=== PATIENT | male | born 1990 | race African-American/Black ===

== ENCOUNTER → 2016-11-13 22:55 | Emergency (ER) | payer OTHER ==
[2016-11-13 22:41] LABS: BASOPHIL# 0.1 X10e3 (0-0.3); BASOPHIL% 0.4 % (0-2.5); EOSINOPHIL% 0.1 % (0.0-7.0); HEMATOCRIT 50.8 % (38.0-50.0); LYMPHOCYTE# 1.2 X10e3 (1.0-3.5); LYMPHOCYTE% 9.2 % (17.0-45.0); MEAN CELL VOLUME 98.2 FL (83-96); MEAN CORPUSCULAR HEMOGLOBIN 32.9 PG (28-34); MEAN CORPUSCULAR HGB CONC 33.5 g/dL (30-36); MEAN PLATELET VOLUME 10.9 FL (6.5-11.5); MONOCYTE# 0.7 X10e3 (0-1.0); MONOCYTE% 5.5 % (3.0-12.0); NEUTROPHIL# 11.2 X10e3 (1.5-7.1); NEUTROPHIL% 84.8 % (40-75); RED BLOOD COUNT 5.17 X10e (3.90-5.60); RED CELL DISTRIBUTION WIDTH 12.7 % (11.0-15.5); WHITE BLOOD COUNT 13.2 X10e3 (4.0-10.5)
[2016-11-13 22:57] LABS: ALBUMIN SERUM 5.2 g/dL (3.5-5.0); BILIRUBIN, DIRECT 0.1 mg/dL (0.0-0.2); BILIRUBIN,TOTAL 1.1 mg/dL (0.2-2.0); BUN/CREATININE RATIO 12.5; CALCIUM SERUM 10.2 mg/dL (8.4-10.2); CREATININE SERUM 0.8 mg/dL (0.6-1.4); POTASSIUM 3.9 mmol/L (3.5-5.1); PROTEIN TOTAL SERUM 8.6 g/dL (6.0-8.3)
[2016-11-13 22:58] LABS: DIFF IND NO; PLATELET COUNT 147 X10e3 (140-420)
== END | disposition left against medical advice (07) ==
LOC: CED 22:55
PROVIDERS: Emergency Medicine
DX: Z53.21 Procedure and treatment not carried out due to patient leaving prior to being seen by health care provider (principal)
CPT/HCPCS: 80048; 80076; 82150; 83690; 85025

== ENCOUNTER 2016-11-15 14:22 | Emergency (ER) | payer OTHER ==
--- NOTE | ~2016-11-15 | CR2 ---
[facility] A Service of [facility] & [facility] RADIOLOGY TEXT RESULTS PATIENT: LEILA GARCÍA LOCATION: [facility] : [birth year] UNIT #: [id number] AGE: [address]: Humza Chan MD SEX: M ORDER DR: [id number] [facility] [address] [place], [place] [address] [id number] MR#: [id number] Acc #: [id number] NAME: LEILA GARCÍA : 1990 SEX: M STUDY DATE/TIME: 11/15/2016 14:16 UNIT: [facility] ROOM: STUDY DESCRIPTION: CR Abdomen Acute Series Attending Physician: Humza Chan M.D. Ordering Physician: Humza Chan M.D. MEDICAL IMAGING REPORT This report is preliminary unless electronic signature is present EXAM Abdominal series INDICATIONS Vomiting and chest pain and epigastric region pain for the past few days. TECHNIQUE Frontal view chest. Supine and upright views of the abdomen. FINDINGS Lungs are clear. No free air. Non-obstructed bowel gas pattern. IMPRESSION No acute findings. Dictated by... Caesar Ascencio M.D. THIS IS AN ELECTRONICALLY VERIFIED REPORT Caesar Ascencio M.D. at 11/16/2016 9:43 AM EED/miladys TD: 11/15/2016 16:29 JOB #: [id number] MEDICAL IMAGING REPORT Page 1 of 1 COPY
--- NOTE | ~2016-11-15 | EKG ---
PATIENT: LEILA GARCÍA UNIT #: [id number] Ventricular Rate: 59 BPM Atrial Rate: 59 BPM P-R Interval: 158 ms QRS Duration: 114 ms Q-T Interval: 408 ms QTC Calculation(Bezet): 403 ms P [place]: 56 degrees Calculated R [place]: 89 degrees Calculated T [place]: 62 degrees Diagnosis Line: Sinus bradycardia Diagnosis Line: Otherwise normal ECG Diagnosis Line: No previous ECGs available Diagnosis Line: Confirmed by JEFFERSON CURRY MD ([id number]) on Diagnosis Line: 11/16/2016 7:15:24 AM INTERPRETING MD: SASCHA
[2016-11-15 14:41] LABS: POC - CKMB <1.0 ng/mL (0.0-7.9); POC - TROPONIN <0.05 ng/mL (<=0.05)
[2016-11-15 14:46] LABS: INFLUENZA A NEG (NEG); INFLUENZA B NEG (NEG)
[2016-11-15 14:48] LABS: BASOPHIL% 0.3 % (0-2.5); EOSINOPHIL% 0.3 % (0.0-7.0); HEMATOCRIT 53.7 % (38.0-50.0); HEMOGLOBIN 18.1 gm/dL (13.0-16.0); LYMPHOCYTE# 1.9 X10e3 (1.0-3.5); LYMPHOCYTE% 15.6 % (17.0-45.0); MEAN CELL VOLUME 98.4 FL (83-96); MEAN CORPUSCULAR HEMOGLOBIN 33.1 PG (28-34); MEAN CORPUSCULAR HGB CONC 33.7 g/dL (30-36); MEAN PLATELET VOLUME 10.6 FL (6.5-11.5); MONOCYTE# 1.2 X10e3 (0-1.0); MONOCYTE% 10.3 % (3.0-12.0); NEUTROPHIL# 8.8 X10e3 (1.5-7.1); NEUTROPHIL% 73.5 % (40-75); PLATELET COUNT 145 X10e3 (140-420); RED BLOOD COUNT 5.46 X10e (3.90-5.60); RED CELL DISTRIBUTION WIDTH 12.8 % (11.0-15.5)
[2016-11-15 14:50] LABS: PARTIAL THROMBOPLASTIN TIME 28.5 SECONDS (23.5-31.3); PROTHROMBIN TIME (PATIENT) 10.8 SECONDS (9.6-11.5)
[2016-11-15 15:09] LABS: ALBUMIN SERUM 5.2 g/dL (3.5-5.0); BILIRUBIN, DIRECT 0.1 mg/dL (0.0-0.2); BILIRUBIN,INDIRECT 0.9 mg/dL (0.0-0.9); BUN/CREATININE RATIO 14.44; CALCIUM SERUM 9.8 mg/dL (8.4-10.2); CREATININE SERUM 0.9 mg/dL (0.6-1.4); GLOM FILT RATE Estimated 137.1 mL/min (>60); POTASSIUM 3.2 mmol/L (3.5-5.1); PROTEIN TOTAL SERUM 8.5 g/dL (6.0-8.3)
[2016-11-15 15:17] LABS: DIFF IND NO
[2016-11-15 15:42] LABS: URINE SOURCE CLEAN CATCH
[2016-11-15 16:00] LABS: URINE APPEARANCE CLEAR; URINE BLOOD NEG (NEG); URINE COLOR DK YELLOW; URINE GLUCOSE NEG (NEG); URINE KETONE 2+ (NEG); URINE LEUKOCYTE ESTERASE 1+ (NEG); URINE NITRATE NEG (NEG); URINE PROTEIN 1+ (NEG); URINE SPECIFIC GRAVITY 1.042 (1.003-1.035)
[2016-11-15 16:03] LABS: CULTURE INDICATED? YES; URINE BACTERIA AUWI NEG (NEGATIVE); URINE SQUAMOUS EPITHELIAL CELL OCC /[HPF]; UWBCS1 AUWI 25-50 (0-5)
[2016-11-15 16:13] LABS: URINE BILIRUBIN NEG (NEG)
[2016-11-15 16:19] LABS: URINE MUCUS PRESENT; URINE TRICHOMONAS PRESENT
[2016-11-15 16:30] LABS: POC - CKMB <1.0 ng/mL (0.0-7.9); POC - TROPONIN <0.05 ng/mL (<=0.05)
[2016-11-17 16:46] LABS: CHLAMYDIA TRACH Not Detected (Not Detected); N GONOR Not Detected (Not Detected)
== END 2016-11-15 16:50 | disposition home or self-care (01) ==
LOC: CED 14:22
PROVIDERS: Emergency Medicine
DX: R09.1 Pleurisy (principal); A59.00 Urogenital trichomoniasis, unspecified
CPT/HCPCS: 36415; 74022; 80048; 80076; 81003; 82553; 83690; 84484; 85025; 85379; 85610; 85730; 87086; 87491; 87591; 87804; 93005; 96361; 96374; 99284; J2405

== ENCOUNTER 2017-01-18 13:47 | Inpatient (IN) | payer OTHER ==
--- NOTE | ~2017-01-18 | US6 ---
[facility] A Service of [facility] & [facility] RADIOLOGY TEXT RESULTS PATIENT: LEILA GARCÍA LOCATION: A 340-01 : [birth year] UNIT #: [id number] AGE: [address]: Kori Gore MD SEX: M ORDER DR: [id number] [facility] [address] [place], [place] [address] [id number] I MR#: [id number] Acc #: [id number] NAME: LEILA GARCÍA : 1990 SEX: M STUDY DATE/TIME: 01/19/2017 7:27 UNIT: C3A PCU ROOM: [facility] STUDY DESCRIPTION: US Abdominal Limited Attending Physician: Kori Gore M.D. Ordering Physician: Ayah Hargrove M.D. Primary Care Physician: No Primary Care Physician MEDICAL IMAGING REPORT This report is preliminary unless electronic signature is present EXAM Right upper quadrant ultrasound 01/19/2017. HISTORY Epigastric abdominal pain, right upper quadrant pain with nausea and vomiting for 2 days, pancreatitis, elevated lipase levels today. FINDINGS The liver is homogeneous in echotexture and demonstrates no cystic or solid mass lesions. The intra and extrahepatic bile ducts are not dilated. The gallbladder is normal with no evidence of cholelithiasis, wall thickening or pericholecystic fluid. The common duct measures 3 mm. The pancreas is somewhat enlarged. The pancreatic tail is obscured by bowel gas. No peripancreatic fluid collections are identified by ultrasound. There is increased right renal cortical echogenicity characteristic of medical renal disease. IMPRESSION 1. Normal gallbladder. 2. The pancreatic tail is obscured by bowel gas. The visualized portions of the pancreas appears somewhat diffusely enlarged. No peripancreatic fluid collections are identified. 3. Increased right renal cortical echogenicity characteristic of medical renal disease. No evidence of hydronephrosis. Dictated by... Darren Hall M.D. THIS IS AN ELECTRONICALLY VERIFIED REPORT Darren Hall M.D. at 01/20/2017 8:19 AM KRT/bd TD: 01/19/2017 13:33 [facility] A Service of [facility] & [facility] RADIOLOGY TEXT RESULTS PATIENT: LEILA GARCÍA LOCATION: [facility] 340-01 : [birth year] UNIT #: [id number] AGE: [address]: Kori Gore MD SEX: M ORDER DR: JOB #: [id number] MEDICAL IMAGING REPORT Page 1 of 1 COPY
--- NOTE | ~2017-01-18 | HP ---
Unit #: [id number] #: [id number] Patient: LEILA GARCÍA [id number] [address] [address] [id number] I MR#: [id number] NAME: LEILA GARCÍA ROOM: 13912 Age: 26 Sex: M Admission Date: 01/18/2017 : 1990 Attending Physician: Ayah Hargrove M.D. Primary Care Physician: No Primary Care Physician HISTORY AND PHYSICAL CHIEF COMPLAINT Vomiting, abdominal pain. HISTORY OF PRESENT ILLNESS The patient is a 26-year-old male with no significant past medical history, who presented to the emergency department for evaluation of the above. The patient states that he was in his usual state of health until the morning of admission when he developed abdominal pain. He states that the pain is in his mid and upper abdomen. He describes it as "achy." There are no exacerbating or alleviating factors. He denies any similar pain. He has had six bouts of nonbloody emesis within the past 24 hours. He also reports three bouts of nonbloody diarrhea. He denies any urinary symptoms. No fever. No cough or cold symptoms. In the emergency department a CT of the abdomen and pelvis was done and showed findings concerning for moderate to severe pancreatitis. White blood cell count is 14.7. He was given morphine and Zofran in the emergency department as well as 1 L of normal saline. Of note, the patient drinks most days. He states that his last drink was on the day prior to admission and consisted of a pint that he split with a friend. PAST MEDICAL HISTORY The patient denies hospitalizations. PAST SURGICAL HISTORY None. SOCIAL HISTORY The patient lives with his girlfriend. He smokes a pack of cigarettes daily. He drinks most days. He stated initially occasionally then he said every other day. His last drink was yesterday. He split a pint with a friend. He denies illicit drug use. He is currently unemployed. FAMILY HISTORY Family history is notable for his parents being healthy. ALLERGIES No known allergies. HOME MEDICATIONS None. Unit #: [id number] #: [id number] Patient: LEILA GARCÍA REVIEW OF SYSTEMS A complete review of systems is negative except as indicated in the HPI. The patient denies ever having endoscopy. DIAGNOSTIC STUDIES IMAGING: CT of the abdomen and pelvis shows moderate to severe pancreatitis with peripancreatic inflammatory change. There is no drainable fluid collection. There is also stranding of the ascending colon concerning for possible mild colitis. Gallbladder sludge is also noted. LABORATORY: Urinalysis notable for trace protein. Complete blood count notable for white blood cell count of 14.7, hemoglobin and hematocrit 16.8 and 51.1 respectively. Comprehensive metabolic panel notable for glucose of 143, lipase is 282. PHYSICAL EXAMINATION VITAL SIGNS: Temperature is 98. Pulse 52. Respirations 16. Blood pressure 157/88. Oxygen saturation is 100% on room air. GENERAL: The patient is an -[place] male who is awake and alert, in no acute distress. HEENT: The head is atraumatic. Mucous membranes are dry. NECK: Neck is supple. Trachea is midline. CARDIOVASCULAR: Regular rate and rhythm. LUNGS: Lungs are clear to auscultation bilaterally with no increased work of breathing. ABDOMEN: Abdomen is soft. He is tender to palpation in the epigastric area. His bowel sounds are present in all four quadrants but somewhat decreased. EXTREMITIES: Nontender with no pedal edema. NEUROLOGIC: The patient is awake and alert. He follows commands. PSYCHIATRIC: Mood and affect are normal. The patient is cooperative. SKIN: Skin of examined areas is warm and dry. ASSESSMENT The patient is a 26-year-old male with: 1. Acute pancreatitis, likely secondary to alcohol abuse with last drink being yesterday. 2. Possible acute colitis versus inflammatory change related to pancreatitis. 3. Leukocytosis with a white blood cell count of 14.7. 4. Alcohol abuse with last drink being yesterday. 5. Tobacco abuse. PLAN 1. Admit to intermediate level. 2. N.p.o. 3. P.r.n. morphine. 4. P.r.n. Zofran. 5. Alcohol withdrawal protocol with IV fluids to start now. 6. Right upper quadrant ultrasound for further evaluation of pancreatitis and gallbladder sludge noted on CT. 7. Blood cultures x2. 8. Stool for ova and parasites, C. diff, culture and sensitivity. 9. Zosyn IV pending further workup. 10. Check blood alcohol level. 11. Urine tox screen. Unit #: [id number] #: [id number] Patient: LEILA GARCÍA 12. site project manager/social work consult regarding alcohol abuse. 13. SCDs for DVT prophylaxis. 14. Repeat labs in the morning including amylase and lipase. 15. Additional workup and consultants based on above. Dictated by Rosa Holder/anna TD: 01/18/2017 19:24 JOB #: [id number] HISTORY AND PHYSICAL Page 1 of 1 X Ayah Hargrove MD X HISTORY AND PHYSICAL
--- NOTE | ~2017-01-18 | CT2 ---
[facility] A Service of [facility] & [facility] RADIOLOGY TEXT RESULTS PATIENT: LEILA GARCÍA LOCATION: C3A 340-01 : [birth year] UNIT #: [id number] AGE: [address]: Kori oGre MD SEX: M ORDER DR: [id number] [facility] [address] [place], [place] [address] [id number] I MR#: [id number] Acc #: [id number] NAME: LEILA GARCÍA : 1990 SEX: M STUDY DATE/TIME: 01/18/2017 16:15 UNIT: C3A PCU ROOM: 340 STUDY DESCRIPTION: CT Abd and Pelv W Cont Attending Physician: Kori Gore M.D. Ordering Physician: Er Physicians Primary Care Physician: Primary Care Physician No MEDICAL IMAGING REPORT This report is preliminary unless electronic signature is present EXAM CT abdomen and pelvis 01/18/2017 HISTORY Vomiting, abdomen pain since this a.m. Middle abdomen pain. The CT exam was performed with one or more of the following radiation dose reduction techniques: automatic exposure control, adjustment of mA and/or kV according to patient size, and iterative reconstruction. FINDINGS CT abdomen performed with intravenous administration 100 mL Isovue-370. No comparisons. Lung bases clear. Inferior heart and pericardium unremarkable. Liver shows no focal abnormality. The liver is enlarged measuring 21 cm in craniocaudal extent. Trace fluid adjacent to the right hepatic lobe. Not drainable fluid collection. Gallbladder is normal in volume. There is a subtle increased density in the dependent portion of the gallbladder. I favor this is gallbladder sludge. No discrete calculi are seen. There is no wall thickening or localized pericholecystic fluid and there is no biliary ductal dilatation. The spleen is unremarkable. Pancreas is abnormal. The pancreas shows subtle heterogeneity of enhancement. There is extensive peripancreatic inflammatory change. There is fluid along the anterior posterior and inferior aspects of the pancreatic tail and along the inferior aspect of the pancreatic head and uncinate process tracking along the anterior to pararenal fascia bilaterally into the bilateral pericolic gutters. There is no pancreatic ductal dilatation. No intrapancreatic fluid collection. Some fluid tracks superiorly toward the splenic hilum. At this time I do not believe there is a drainable fluid collection. There is no indication of organized fluid collection. There is a small amount of free fluid in the pelvis also not a drainable fluid collection. Findings most consistent with moderate to severe acute pancreatitis. Cause unknown. The adrenal glands are unremarkable. Although this is a contrast-enhanced [facility] A Service of [facility] RADIOLOGY TEXT RESULTS PATIENT: LEILA GARCÍA LOCATION: C3A 340-01 : [birth year] UNIT #: [id number] AGE: [address]: Kori Gore MD SEX: M ORDER DR: examination, there do appear to be bilateral nonobstructing renal calculi largest on the right measuring about 2 mm in diameter in the upper pole and largest on the left also in the upper pole measuring about 3-4 mm. No acute renal abnormality. No hydronephrosis or hydroureter. CT Pelvis: No inguinal adenopathy. Urinary bladder unremarkable. No pelvic or retroperitoneal adenopathy. Distal esophagus and stomach unremarkable. Small bowel is unremarkable to the level of the terminal ileum. There is fatty infiltration in the wall of the terminal ileum. Normal caliber terminal ileum. Appendix questionably visualized anterior to the external iliac vessels. No abnormal appendix is suggested. Fatty infiltration in the wall of the colon diffusely. No colonic dilatation. No focal mass lesion. There is ascending colon diverticulosis without inflamed diverticulum seen. There is haziness in the fat adjacent to the ascending colon. To what extent this may be related to the pancreatitis and extension of fluid into the right pericolic gutter is unclear. The possibility of a mild ascending colitis is not entirely excluded though no focal area of colonic wall thickening is seen. The above described fatty infiltration in the colonic wall is relatively uniform throughout the colon. There is mild generalized prominence of mesenteric vasculature. This is nonspecific. The fatty infiltration of the wall of the ileum and colon could be a reflection of prior episodes of colonic and ileal inflammation. Given the patient's young age, correlate with any known history of inflammatory bowel disease such as Crohn disease. The mild vascular prominence of the mesentery could be related to chronic inflammatory bowel disease. Alternatively it may simply be a reflection of the acute pancreatitis. Vascular structures appear normal in caliber. No acute-appearing bony abnormality. IMPRESSION 1. Abnormal examination. Predominant acute abnormality appears to be moderate to severe pancreatitis. Peripancreatic inflammatory change. Fluid adjacent to the pancreatic tail extending toward the splenic hilum, greater curvature of stomach, along the bilateral anterior pararenal fascia into the bilateral pericolic gutters. No organized appearing fluid collection and no drainable fluid collection suggested at this time. There is no pancreatic ductal dilatation and no intrapancreatic fluid collection. The pancreas is slightly heterogeneous in appearance but does show parenchymal enhancement. There is no evidence of pancreatic hemorrhage or necrosis. Cause for pancreatitis unclear. 2. Small amount of fluid adjacent to the liver and in the deep pelvis. These are not drainable fluid collections. 3. Fatty infiltration in wall of terminal ileum and diffusely throughout the wall of the entire colon. This is a nonspecific finding. It may be a reflection of prior episodes of ileal and colonic inflammation. In a patient of this young age, correlate with any clinical concern for inflammatory bowel disease such as Crohn disease. [facility] A Service of [facility] RADIOLOGY TEXT RESULTS PATIENT: LEILA GARCÍA LOCATION: C3A 340-01 : [birth year] UNIT #: [id number] AGE: [address]: Kori Gore MD SEX: M ORDER DR: 4. There are ascending colon diverticula without localized inflamed diverticulum seen. 5. There is some haziness and stranding in the fat adjacent to the ascending colon. To what extent this reflects inflammatory change extending from pancreatitis and fluid extending into the pericolic gutter or reflects a mild ascending colitis is unclear. Again no localized area of colonic mural thickening is clearly identified. Please correlate clinically. Weight should be given the clinical assessment. 6. Mild prominence of the vascular arcade within the mesentery could be related to inflammatory change in the abdomen due to the pancreatitis or could in part be chronic in nature if the patient does indeed have a history of inflammatory bowel disease. 7. Nonobstructing bilateral renal calculi. No acute renal findings. 8. There is some subtle layering higher density material within the gallbladder favored to be sludge. Gallbladder otherwise unremarkable. No discrete calculi are seen. No biliary ductal dilatation. 9. Please see remainder findings above. Dictated by... Reuben Quezada M.D. THIS IS AN ELECTRONICALLY VERIFIED REPORT Reuben Quezada M.D. at 01/19/2017 5:40 PM MADALYN/naveen TD: 01/19/2017 08:08 JOB #: [id number] MEDICAL IMAGING REPORT Page 1 of 1 COPY
--- NOTE | ~2017-01-18 | DS ---
Unit #: [id number] #: [id number] Patient: LEILA GARCÍA [id number] [address] [address] [id number] I MR#: [id number] NAME: LEILA GARCÍA ROOM: 215 Age: 26 Sex: M Admission Date: 01/18/2017 : 1990 Discharge Date: 01/21/2017 Attending Physician: Kori Gore M.D. Primary Care Physician: No Primary Care Physician DISCHARGE SUMMARY PRIMARY CARE PHYSICIAN None. PRINCIPAL DIAGNOSES 1. Acute alcohol-induced pancreatitis. 2. Systemic inflammatory response syndrome. 3. Alcohol misuse without evidence of withdrawal or dependence. 4. Hypertension. 5. Thrombocytopenia, secondary to alcohol. 6. Hypomagnesemia. 7. Marijuana abuse. 8. Tobaccoism. 9. Hypokalemia. 10. Hypophosphatemia. 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 PROCEDURES 1. CT scan of abdomen and pelvis with contrast on January 18, 2017, with [id number] pancreatitis with peripancreatic inflammatory change noted. This was adjacent to pancreatic testing toward the splenic hilum, greater curvature of the stomach, and along the bilateral anterior perirenal fascia into the bilateral pericolic gutters. No evidence of hemorrhage or necrosis. Fatty infiltration involving the terminal ileum and diffusely throughout the entire colon is nonspecific. 2. Right upper quadrant ultrasound on January 19, 2017 which was normal. Increased right renal cortical echogenicity is noted. CLINICAL HISTORY AND HOSPITAL COURSE Mr. García is a 26-year-old -[place] male, who presents to the emergency department with complaints of chest pain and vomiting. In the emergency department, the patient was found to have a leukocytosis with white blood cell count of 14,000. CT scan revealed pancreatitis and questionable colitis. Patient was subsequently admitted. Patient was placed on IV fluids, antiemetics, and pain medication. Lipase the day following admission actually increased from 282 to 566 and patient remained NPO; however, the following day lipase is now down to 350 and he was started on clears. On day of discharge, lipase is down even more, down to 160 and patient has been able to tolerate the clear liquid diet. He denies having any further abdominal pain; however, his white blood cell count was remains elevated. On day of admission, it was 14.7. On day of Unit #: [id number] #: [id number] Patient: LEILA GARCÍA discharge, it is remaining stable to approximately 20,000. Patient has remained afebrile throughout hospitalization. I did discuss with patient that his persistent leukocytosis is somewhat concerning for me, that perhaps his pancreatitis has not completely resolved. Given his pancreatitis was itbrlknk-ym-nzzjab, I suggested another day of hospitalization. I think he would also benefit from rescanning of the abdomen just to ensure pancreatitis is resolving; however, today patient states he is ready to go home and he is willing to sign out against medical advice. However, I will treat as outlined below. Patient's only other significant abnormal finding was some hypertension. I am going to continue Norvasc upon discharge and he can be followed up in the transition clinic. DISCHARGE CONDITION Stable, still ill but improving. DISCHARGE STATUS Discharge to home against medical advice. DISCHARGE MEDICATIONS 1. Oxycodone 5 mg one tablet every four to six hours p.r.n. for pain #10 given. 2. Flagyl 500 mg p.o. t.i.d. for five days. 3. Norvasc 10 mg daily with one refill. DISCHARGE INSTRUCTIONS The patient was instructed to follow a low-fat diet for the next three days, then gradually increase as tolerated. He is to refrain from any further alcohol use. FOLLOWUP Patient will follow up in transition clinic in two weeks. I have instructed him if he develops worsening of abdominal pain, any diarrhea, nausea, vomiting, fever to return emergently to the ER. Dictated by... Kori Gore M.D. TATIANA/smith TD: 01/22/2017 10:37 JOB #: [id number] DISCHARGE SUMMARY Page 1 of 1 X Kori Gore MD DISCHARGE SUMMARY
[2017-01-18 15:07] LABS: BASOPHIL# 0.1 X10e3 (0-0.3); BASOPHIL% 0.6 % (0-2.5); EOSINOPHIL# 0.1 X10e3 (0-0.7); EOSINOPHIL% 0.4 % (0.0-7.0); HEMATOCRIT 51.1 % (38.0-50.0); HEMOGLOBIN 16.8 gm/dL (13.0-16.0); LYMPHOCYTE# 1.8 X10e3 (1.0-3.5); LYMPHOCYTE% 12.2 % (17.0-45.0); MEAN CELL VOLUME 99.2 FL (83-96); MEAN CORPUSCULAR HEMOGLOBIN 32.5 PG (28-34); MEAN CORPUSCULAR HGB CONC 32.8 g/dL (30-36); MEAN PLATELET VOLUME 10.3 FL (6.5-11.5); MONOCYTE# 1.3 X10e3 (0-1.0); MONOCYTE% 8.7 % (3.0-12.0); NEUTROPHIL# 11.5 X10e3 (1.5-7.1); NEUTROPHIL% 78.1 % (40-75); PLATELET COUNT 154 X10e3 (140-420); RED BLOOD COUNT 5.15 X10e (3.90-5.60); WHITE BLOOD COUNT 14.7 X10e3 (4.0-10.5)
[2017-01-18 15:21] LABS: ALBUMIN SERUM 4.8 g/dL (3.5-5.0); BILIRUBIN, DIRECT 0.1 mg/dL (0.0-0.2); BILIRUBIN,INDIRECT 0.4 mg/dL (0.0-0.9); BILIRUBIN,TOTAL 0.5 mg/dL (0.2-2.0); BUN/CREATININE RATIO 11.42; CALCIUM SERUM 9.5 mg/dL (8.4-10.2); CREATININE SERUM 0.7 mg/dL (0.6-1.4); GLOM FILT RATE Estimated 152.1 mL/min (>60); POTASSIUM 3.7 mmol/L (3.5-5.1); PROTEIN TOTAL SERUM 7.7 g/dL (6.0-8.3)
[2017-01-18 15:31] LABS: DIFF IND NO
[2017-01-18 17:20] LABS: URINE SOURCE CLEAN CATCH
[2017-01-18 17:24] LABS: URINE APPEARANCE CLEAR; URINE BILIRUBIN NEG (NEG); URINE BLOOD NEG (NEG); URINE COLOR YELLOW; URINE GLUCOSE NEG (NEG); URINE KETONE NEG (NEG); URINE LEUKOCYTE ESTERASE NEG (NEG); URINE NITRATE NEG (NEG); URINE PH 6.5 (5-8); URINE PROTEIN TRACE (NEG); URINE SPECIFIC GRAVITY 1.064 (1.003-1.035)
[2017-01-18 17:31] LABS: CULTURE INDICATED? NO
[2017-01-18 19:38] LABS: MAGNESIUM 1.8 mg/dL (1.6-3.0)
[2017-01-18 19:39] LABS: ALCOHOL BLOOD <5 mg/dL (0)
[2017-01-18 20:19] LABS: AMPHETAMINE NEG (NEG); BARBITURATES NEG (NEG); BENZODIAZEPINES NEG (NEG); COCAINE NEG (NEG); MARIJUANA POS (NEG); OPIATES POS (NEG); TRICYCLIC ANTIDEPRESSANTS POS (NEG); U METHADONE NEG (NEG)
[2017-01-19 07:52] LABS: HEMATOCRIT 47.9 % (38.0-50.0); HEMOGLOBIN 15.8 gm/dL (13.0-16.0); MEAN CELL VOLUME 98.8 FL (83-96); MEAN CORPUSCULAR HEMOGLOBIN 32.6 PG (28-34); MEAN PLATELET VOLUME 11.2 FL (6.5-11.5); RED BLOOD COUNT 4.85 X10e (3.90-5.60); RED CELL DISTRIBUTION WIDTH 14.1 % (11.0-15.5)
[2017-01-19 08:31] LABS: WHITE BLOOD COUNT 22.1 X10e3 (4.0-10.5)
[2017-01-19 08:55] LABS: ALBUMIN SERUM 3.9 g/dL (3.5-5.0); BILIRUBIN,TOTAL 0.7 mg/dL (0.2-2.0); BUN/CREATININE RATIO 11.42; CALCIUM SERUM 9.1 mg/dL (8.4-10.2); CREATININE SERUM 0.7 mg/dL (0.6-1.4); GLOM FILT RATE Estimated 152.1 mL/min (>60); POTASSIUM 3.6 mmol/L (3.5-5.1); PROTEIN TOTAL SERUM 6.7 g/dL (6.0-8.3)
[2017-01-20 06:48] LABS: HEMATOCRIT 45.7 % (38.0-50.0); HEMOGLOBIN 15.1 gm/dL (13.0-16.0); MEAN CELL VOLUME 98.6 FL (83-96); MEAN CORPUSCULAR HEMOGLOBIN 32.6 PG (28-34); MEAN CORPUSCULAR HGB CONC 33.1 g/dL (30-36); MEAN PLATELET VOLUME 10.8 FL (6.5-11.5); RED BLOOD COUNT 4.63 X10e (3.90-5.60); RED CELL DISTRIBUTION WIDTH 13.7 % (11.0-15.5); WHITE BLOOD COUNT 20.4 X10e3 (4.0-10.5)
[2017-01-20 06:54] LABS: ALBUMIN SERUM 3.5 g/dL (3.5-5.0); BILIRUBIN,TOTAL 0.5 mg/dL (0.2-2.0); BUN/CREATININE RATIO 8.33; CALCIUM SERUM 8.8 mg/dL (8.4-10.2); CREATININE SERUM 0.6 mg/dL (0.6-1.4); MAGNESIUM 1.5 mg/dL (1.6-3.0); PHOSPHOROUS 2.1 mg/dL (2.5-4.6); POTASSIUM 3.5 mmol/L (3.5-5.1); PROTEIN TOTAL SERUM 6.6 g/dL (6.0-8.3)
[2017-01-21 05:28] LABS: HEMATOCRIT 44.7 % (38.0-50.0); MEAN CELL VOLUME 98.2 FL (83-96); MEAN CORPUSCULAR HEMOGLOBIN 32.9 PG (28-34); MEAN CORPUSCULAR HGB CONC 33.5 g/dL (30-36); MEAN PLATELET VOLUME 10.4 FL (6.5-11.5); RED BLOOD COUNT 4.55 X10e (3.90-5.60); WHITE BLOOD COUNT 20.1 X10e3 (4.0-10.5)
[2017-01-21 06:24] LABS: CALCIUM SERUM 8.6 mg/dL (8.4-10.2); CARBON DIOXIDE 25 mmol/L (22-31); CHLORIDE 98 mmol/L (100-111); CREATININE SERUM 0.6 mg/dL (0.6-1.4); GLUCOSE FASTING 99 mg/dL (70-110); LIPASE 160 U/L (22-51); MAGNESIUM 1.9 mg/dL (1.6-3.0); POTASSIUM 3.4 mmol/L (3.5-5.1); SODIUM 131 mmol/L (135-145)
[2017-01-21 06:26] LABS: BLOOD UREA NITROGEN <5 mg/dL (9-23); BUN/CREATININE RATIO 8.33
== END 2017-01-21 13:18 | disposition left against medical advice (07) | DRG 440 ==
LOC: CED 13:47 → C3A PCU 18:55 → CEDOF 18:55 → CED 19:07 → CEDOF 19:07 → C3A PCU 21:35 → CEDOF 21:35 → C3A PCU 21:35 → C2A 01-20 18:28
PROVIDERS: Family Medicine; Internal Medicine
DX: K85.20 Alcohol induced acute pancreatitis without necrosis or infection (principal); D69.59 Other secondary thrombocytopenia; F10.10 Alcohol abuse, uncomplicated; I10 Essential (primary) hypertension; E83.42 Hypomagnesemia; F12.10 Cannabis abuse, uncomplicated; F17.210 Nicotine dependence, cigarettes, uncomplicated; E87.6 Hypokalemia; E83.39 Other disorders of phosphorus metabolism; Y90.0 Blood alcohol level of less than 20 mg/100 ml
CPT/HCPCS: 36415; 74177; 76705; 80048; 80053; 80076; 80307; 81003; 82150; 83690; 83735; 84100; 85025; 85027; 87040; 96361; 96374; 96375; 99285; G0480; J0360; J2270; J2405; J2543; J3411; J3475; J7042; Q9967